=== PATIENT | female | born 1960 | race Asian ===

== ENCOUNTER → 2017-04-02 | Outpatient (CLI) | payer MEDICAID | LOC: FIMAGING 08:12 | PROVIDERS: ATTEND Internal Medicine | DX: Z12.31 Encounter for screening mammogram for malignant neoplasm of breast (principal) | CPT/HCPCS: G0202 ==

== ENCOUNTER 2018-03-22 14:42 | Emergency (ER) | payer MEDICAID ==
[2018-03-22 14:48] VITALS: BP 169/120
--- NOTE | 2018-03-22 15:14 | EDPHY ---
General Time Seen by Provider: 03/22/18 15:02 Narrative: CHIEF COMPLAINT: "I sprained my ankle" HISTORY OF PRESENT ILLNESS: Patient presents with complaints of sprain ankle. She states that she was walking within the past 2 hr when she accidentally inverted her left ankle when stepping off of a step. She felt a sudden onset of pain in the lateral side of the ankle. No pain in the foot, heel, mendez or knee. She did not fall or strike herself anywhere. She has no numbness or tingling. The pain is minimal at rest. [id number] when she walks. No numbness or tingling. No weakness. No laceration or puncture. ESTABLISHED ORTHOPEDIST: None REVIEW OF SYSTEMS: Ten systems reviewed and are negative unless otherwise noted in the HPI PAST MEDICAL HISTORY: Hypertension, uterine fibroids PAST SURGICAL HISTORY: No recent surgery SOCIAL HISTORY: Nonsmoker. Lives independently FAMILY HISTORY: Noncontributory EXAMINATION General Appearance: Alert, no distress Cardiovascular: Symmetric DP pulses 2+. Symmetric PT pulses 2+. Good signs of perfusion to the left foot. Neurological: A&O, light sensory symmetric in the feet and lower extremities. Strength is symmetric in the ankles and great toes. Skin: Warm and dry, no rash. No puncture laceration. No cyanosis or pallor. Extremities: All compartments are soft the left lower extremity. There is tenderness of the left ankle over the lateral malleolus. No tenderness of the left midfoot or calcaneus. No tenderness of the left proximal fibula. Range of motion of the ankle symmetric. Psychiatric: Mood and affect normal DIFFERENTIAL DIAGNOSES: Including but not limited to sprain, strain, fracture, dislocation, subluxation MDM: 3:05 p.m. Acute inversion injury to the left ankle with pain over the lateral malleolus. There is no pain in the mid foot, heel or proximal fibula. X-rays pending. She is neurovascular intact. She is declining any pain medication ibuprofen this time. 3:10 p.m. X-ray as read by me reveals no bony abnormality 3:15 p.m. X-ray read by radiologist as no acute osseous findings I discussed with the patient. We will treat her with an air splint. Weightbearing as tolerated. Follow up with Orthopedics for definitive care if needed. ED precautions. Ice , elevation. Ibuprofen 600 mg every 6-8 hours as needed for pain. She is comfortable this plan and discharged home stable condition. SUPERVISION: ED Precautions: Worsening pain. Erythema, edema, cyanosis, pallor, paresthesia or anesthesia. - Diagnostics Imaging Results: Imaging Impressions Ankle X-Ray 03/22/18 14:49 Impression: No acute osseous findings. - History Smoking Status: Never smoked - Objective Vital Signs: Initial Vital Signs Temperature (C) 97.3 F 03/22/18 14:45 Heart Rate 78 03/22/18 14:45 Respiratory Rate 18 03/22/18 14:45 Blood Pressure 169/120 H 03/22/18 14:45 O2 Sat (%) 95 03/22/18 14:45 O2 Delivery Mode Room Air Allergies/Adverse Reactions: No Known Allergies Allergy (Verified 03/22/18 14:43) Home Medications: Medication Instructions Recorded Lisinopril 03/22/18 Departure - Departure Disposition: Home, Routine, Self-Care Clinical Impression: Moderate left ankle sprain Qualifiers: Encounter type: initial encounter Qualified Code(s): S93.402A - Sprain of unspecified ligament of left ankle, initial encounter Condition: Good Instructions: Ankle Sprain (ED), Ankle Stirrup Splint (ED) Additional Instructions: 1. Ice, elevation and ibuprofen as needed 2. Follow up with Orthopedics for definitive care 3. ED precautions as discussed for worsening pain, redness, fever, changes in range of motion, changes in sensation Referrals: Trisha Bonilla MD [Primary Care Provider] - As per Instructions Chuy Kuo MD [Medical Doctor] - As per Instructions
== END 2018-03-22 15:33 | disposition home or self-care (01) ==
DX: S93.402A Sprain of unspecified ligament of left ankle, initial encounter (principal); X50.0XXA Overexertion from strenuous movement or load, initial encounter; Y93.01 Activity, walking, marching and hiking; Y99.8 Other external cause status

== ENCOUNTER → 2018-12-03 | Outpatient (CLI) | payer BC, MEDICAID | LOC: FIMAGING 11:30 | PROVIDERS: ATTEND Internal Medicine | DX: D25.9 Leiomyoma of uterus, unspecified (principal); Z12.31 Encounter for screening mammogram for malignant neoplasm of breast ==